=== PATIENT | female | born 1950 | race Caucasian/White ===

== ENCOUNTER → 2017-02-05 | Outpatient (CLI) | payer OTHER | LOC: FIMAGING 15:08 | PROVIDERS: ATTEND Registered Nurse | DX: M50.30 Other cervical disc degeneration, unspecified cervical region (principal); M54.12 Radiculopathy, cervical region; G96.19 Other disorders of meninges, not elsewhere classified; M43.16 Spondylolisthesis, lumbar region; M51.36 Other intervertebral disc degeneration, lumbar region; M51.27 Other intervertebral disc displacement, lumbosacral region; M51.37 Other intervertebral disc degeneration, lumbosacral region; M51.26 Other intervertebral disc displacement, lumbar region ==

== ENCOUNTER → 2017-02-12 | Outpatient (CLI) | payer OTHER | LOC: FLAB 10:59 | PROVIDERS: ATTEND Registered Nurse | DX: M11.262 Other chondrocalcinosis, left knee (principal) ==

== ENCOUNTER 2017-02-19 12:02 | Day surgery (SDC) | payer OTHER ==
[2017-02-19] MEDS ORDERED: FLUMAZENIL 0.5 MG/5 ML MDV IVP ONE (13:32)
[2017-02-19] MEDS ORDERED: NALOXONE HCL 0.4 MG/ML INJ ONE (13:33)
[2017-02-19] MEDS ORDERED: fentaNYL 100 MCG/2 ML INJ ONE (13:33)
[2017-02-19] MEDS ORDERED: ONDANSETRON 4 MG/2 ML VIAL ONE (13:33)
[2017-02-19] MEDS ORDERED: MIDAZOLAM 2 MG/2 ML VIAL ONE (13:33)
[2017-02-19] MEDS ORDERED: TRIAMCINOLONE ACETONIDE 200 MG/5 ML MDV IM ONE (14:17)
[2017-02-19] MEDS ORDERED: IOPAMIDOL (ISOVUE-M 300) 15 ML VIAL IV ONE (14:17)
== END 2017-02-19 15:40 | disposition home or self-care (01) ==
LOC: FIMAGING 12:02
PROVIDERS: ATTEND Radiology Diagnostic Radiology
PROC: 3E0S33Z Introduction of Anti-inflammatory into Epidural Space, Percutaneous Approach (ICD-10-PCS; principal; 2017-02-19 14:25)
PROC: 3E0S3BZ Introduction of Anesthetic Agent into Epidural Space, Percutaneous Approach (ICD-10-PCS; principal; 2017-02-19 14:25)
DX: M54.42 Lumbago with sciatica, left side (principal); M48.06 Spinal stenosis, lumbar region; M54.41 Lumbago with sciatica, right side; F17.210 Nicotine dependence, cigarettes, uncomplicated
CPT/HCPCS: J2250; J2310; J2405; J3010; J3301; Q9967

== ENCOUNTER → 2017-03-05 | Outpatient (CLI) | payer OTHER | LOC: MERGE 13:53 → FIMAGING 13:53 | DX: M16.12 Unilateral primary osteoarthritis, left hip (principal) ==

== ENCOUNTER 2017-10-23 12:55 | Emergency (ER) | payer OTHER ==
[2017-10-23 13:02] VITALS: BP 110/57
[2017-10-23] MEDS ORDERED: CEPHALEXIN 500 MG CAP PO ONE (15:05)
[2017-10-23] MEDS ORDERED: HYDROCODONE/APAP 5/325 TAB PO ONE (15:08)
--- NOTE | 2017-10-23 15:10 | EDPHY ---
H & P Stated Complaint: Left Foot Pain and Swelling Time Seen by Provider: 10/23/17 14:53 HPI/ROS: CHIEF COMPLAINT: Left foot pain HISTORY OF PRESENT ILLNESS: Patient is a 66-year-old female with a history of fibromyalgia neuropathy and hepatitis C who presents to the emergency department complaining of left foot pain, swelling and mild erythema. She 1st noticed it this morning. She has not had a fever. She states that yesterday she fell asleep on the floor with her foot wedged against the table and sustained a small abrasion to the top of her foot. She thinks that this may have started the process. She does not have history of cellulitis or chronic wounds REVIEW OF SYSTEMS: Constitutional: denies: chills, fever, recent illness, recent injury EENTM: denies: blurred vision, double vision, nose congestion Respiratory: denies: cough, shortness of breath Cardiac: denies: chest pain, irregular heart rate, lightheadedness, palpitations Gastrointestinal/Abdominal: denies: abdominal pain, diarrhea, nausea, vomiting, blood streaked stools Genitourinary: denies: dysuria, frequency, hematuria, pain Musculoskeletal: denies: joint pain, muscle pain Skin: See HPI Neurological: denies: headache, numbness, paresthesia, tingling, dizziness, weakness Hematologic/Lymphatic: denies: blood clots, easy bleeding, easy bruising Immunologic/allergic: denies: HIV/AIDS, transplant EXAM: GENERAL: Well-appearing, well-nourished and in no acute distress. HEAD: Atraumatic, normocephalic. EYES: Pupils equal round and reactive to light, extraocular movements intact, sclera anicteric, conjunctiva are normal. ENT: TMs normal, nares patent, oropharynx clear without exudates. Moist mucous membranes. NECK: Normal range of motion, supple without lymphadenopathy or JVD. LUNGS: Breath sounds clear to auscultation bilaterally and equal. No wheezes rales or rhonchi. HEART: Regular rate and rhythm without murmurs, rubs or gallops. ABDOMEN: Soft, nontender, normoactive bowel sounds. No guarding, no rebound. No masses appreciated. BACK: No CVA tenderness, no spinal tenderness, step-offs or deformities EXTREMITIES: Normal range of motion, no pitting or edema. No clubbing or cyanosis. Negative Homans NEUROLOGICAL: Cranial nerves II through XII grossly intact. Normal speech, normal gait. 5/5 strength, normal movement in all extremities, normal sensation PSYCH: Normal mood, normal affect. SKIN: Mildly swollen and erythematous dorsum of left foot. No obvious wounds or lesions. No acute garvin. Source: Patient Exam Limitations: No limitations - Personal History Current Tetanus Diphtheria and Acellular Pertussis (TDAP): Yes - Medical/Surgical History Hx Asthma: No Hx Chronic Respiratory Disease: No Hx Diabetes: No Hx Cardiac Disease: Yes Hx Renal Disease: No Hx Cirrhosis: No Hx Alcoholism: No Hx HIV/AIDS: No Hx Splenectomy or Spleen Trauma: No Other PMH: Hep C, Fibermyalsia, Neuropathy, Mitro Valve Prolapse, ortho problems and chronic pain - Family History Significant Family History: No pertinent family hx - Social History Smoking Status: Current every day smoker Alcohol Use: Sober Drug Use: None Constitutional: Initial Vital Signs Temperature (C) 36.9 C 10/23/17 12:59 Heart Rate 91 10/23/17 12:59 Respiratory Rate 18 10/23/17 12:59 Blood Pressure 110/57 L 10/23/17 12:59 O2 Sat (%) 94 10/23/17 12:59 O2 Delivery Mode Room Air Allergies/Adverse Reactions: erythromycin base Allergy (Verified 01/23/15 13:55) Home Medications: Medication Instructions Recorded GABAPENTIN 300 mg PO BIDAC 06/15/15 Oxycontin 60 mg PO BID 06/15/15 Tizanidine HCl 4 mg PO TID 06/15/15 Xanax 1 mg PO BID 06/15/15 Gabapentin 600 mg PO HS 02/17/17 Hydromorphone HCl 4 mg PO TID 02/17/17 CeleBREX PRN 02/27/17 Cephalexin [Keflex] 500 mg PO TID #21 cap 10/23/17 Medical Decision Making - Diagnostics Imaging: Discussed imaging studies w/ call out clerk Radiologist ED Course/Re-evaluation: We discussed the ultrasound results. The patient is well appearing. I will start her on appropriate antibiotics for cellulitis and have her follow up within 48 hr with her primary or here in the emergency department. She sees Dr. Hernandez. We discussed indications for returning to the emergency department. Differential Diagnosis: Partial list of the Differential diagnosis considered include but were not limited to; cellulitis, DVT and although unlikely based on the history and physical exam, I also considered trauma, gout, septic joint. I discussed these differential diagnoses and the plan with the patient as well as the usual and expected course. The patient understands that the diagnosis is provisional and that in medicine we are not always correct and that further workup is often warranted. Usual and customary warnings were given. All of the patient's questions were answered. The patient was instructed to return to the emergency department should the symptoms at all worsen or return, otherwise to followup with the physician as we discussed. - Data Points Medications Given: Discontinued Medications Hydrocodone Bitart/Acetaminophen ([place] 5/325) 2 tab PO EDNOW ONE Stop: 10/23/17 15:09 Last Admin: 10/23/17 15:37 Dose: 2 tab Cephalexin HCl (Keflex) 500 mg PO EDNOW ONE PRN Reason: Protocol Stop: 10/23/17 15:06 Last Admin: 10/23/17 15:37 Dose: 500 mg Departure - Departure Disposition: Home, Routine, Self-Care Clinical Impression: Cellulitis of left foot Condition: Good Instructions: Cellulitis (ED) Referrals: Jazzmine Hernandez MD [Primary Care Provider] - As per Instructions Prescriptions: Cephalexin [Keflex] 500 mg PO TID #21 cap
[2017-10-23 16:04] VITALS: PULSE 76; RESP 16; TEMP 99.1; O2SAT 92
== END 2017-10-23 16:04 | disposition home or self-care (01) ==
DX: L03.116 Cellulitis of left lower limb (principal); F17.200 Nicotine dependence, unspecified, uncomplicated

== ENCOUNTER → 2019-04-05 | Outpatient (CLI) | payer OTHER | LOC: FIMAGING 16:29 | PROVIDERS: ATTEND Registered Nurse | DX: M47.812 Spondylosis without myelopathy or radiculopathy, cervical region (principal); R07.81 Pleurodynia ==

== ENCOUNTER → 2019-05-05 | Outpatient (CLI) | payer OTHER | LOC: FIMAGING 19:18 ==

== ENCOUNTER → 2019-05-11 | Outpatient (CLI) | payer OTHER | LOC: FIMAGING 15:35 ==